=== PATIENT | female | born 1960 | race Caucasian/White ===

== ENCOUNTER → 2022-10-31 12:28 | Outpatient (CLI) | payer OTHER, SELFPAY ==
--- NOTE | ~2022-10-31 | DEXA_ITS ---
Bone Density Report Name: STUART COLIN Age: 62 Sex: Female Ethnicity: White Date of : 1960 Indication: osteopenia; postmenopausal; height loss; prior fracture; Referring Provider: BENOIT MERAZ Study: Bone densitometry was performed. Exam Date: October 31, 2022 Accession number: [id number] Bone Density: Region BMD T-score Z-score Classification AP Spine (L1-L4) 0.756 -2.6 -1.0 Osteoporosis Femoral Neck (Left) 0.672 -1.6 -0.2 Osteopenia Total Hip (Left) 0.847 -0.8 0.4 Normal Femoral Neck (Right) 0.670 -1.6 -0.2 Osteopenia Total Hip (Right) 0.910 -0.3 0.9 Normal Total Hip Mean 0.879 -0.6 0.7 Normal World Health Organization criteria for BMD impression classify patients as: Normal (T-score at or above -1.0), Osteopenia (T-score between -1.0 and -2.5), or Osteoporosis (T-score at or below -2.5). 10-year Fracture Risk: FRAX not reported because: Some T-score for Spine Total or Hip Total or Femoral Neck at or below -2.5 Previous Exams: Region Exam Age BMD T-score BMD Change BMD Change Date g/cm2 vs Baseline vs Previous AP Spine(L1-L4) 10/31/2022 62 0.756 -2.6 -0.121* -0.121* 12/18/2018 58 0.877 -1.5 Total Hip(Left) 10/31/2022 62 0.847 -0.8 -0.046* -0.046* 12/18/2018 58 0.893 -0.4 Total Hip(Right) 10/31/2022 62 0.910 -0.3 -0.003 -0.003 12/18/2018 58 0.913 -0.2 *Denotes significance at 95% confidence level, LSC for AP Spine = 0.022 g/cm2, LSC for Total Hip = 0.027 g/cm2 Clinical Information Provided by Patient: Has had a low trauma fracture Has used the following medications: Vitamin D, calcium occasionally Patient maximum height was 67 Menopause Age: 49 No regular weight bearing exercise Does not regularly consume dairy products Drinks caffeinated beverages Onset of menses at age 12 Number of children 2 Impression: The patient has established osteoporosis, based on the Total Spine T-score and the existence of a prior fracture. The patient has risk factors, including: previous fracture. The BMD for the AP Spine(L1-L4) decreased, changing by -0.121 since the last DXA exam. The BMD for the Total Hip(Left) decreased, changing by -0.046 since the last DXA exam. Discussion: HIGH RISK OF FRACTURE. BONE DENSITY IS UNDESIRABLY LOW AT ONE OR MORE SKELETAL SITES, CONSISTENT WITH POSTMENOPAUSAL OSTEOPOROSIS. This patient's lowest T-score, in a patient who has previously fractured, meet
== END ==
PROVIDERS: Visit Provider Obstetrics & Gynecology Gynecology
DX: Z78.0 Asymptomatic menopausal state (principal); M81.0 Age-related osteoporosis without current pathological fracture; M85.852 Other specified disorders of bone density and structure, left thigh; M85.851 Other specified disorders of bone density and structure, right thigh
CPT/HCPCS: 77080

== ENCOUNTER 2025-01-02 08:27 | Outpatient (CLI) | payer OTHER, SELFPAY ==
--- OUTSIDE RECORDS SUMMARY | 2004-01-10 19:00 | XMS_ITS | Continuity of Care Document ---
Author Organization [facility] Address [address] [place] [address] Phone Care Team Providers Care Family Worker Name Role Phone Elizalde OD, Augusto Unavailable Unavailable Advance Directives Directive Yes / No Effective Date File Name No Information Encounters Encounter Description Practice Location Reason(s) For Visit Diagnoses Date Provider Providers Copied on Encounter [facility], [address], [place], [place], [id number], [place] tel:[phone] [facility] No Information Sep-1 6-200 4 Elizalde OD Augusto. [address], [place], [address], [place]. tel:[phone] Family History Family Member Type Diagnosis Age At Onset No Information Payers Payer name Insurance type Covered alliance party ID Authoriza tion(s) No Information Social History Type Description Quantity Date Captured Comments Sex Female Smoking Status No Information Chief Complaint And Reason For Visit No Information Reason For Referral Reason For Referral No Information History Of Present Illness Encounter Date Complaint History Of Prese nt Illness No Information Functional Status Date Functional Assessmen t No Information Instructions Date Instruction Additional Infor mation No Information Assessments Type Assessment Date No Information Patient Care Teams Name Effective Dates (start - stop) Status Members No Information
--- NOTE | ~2025-01-02 | DEXA_ITS ---
Bone Density Report Name: STUART COLIN Age: 64 Sex: Female Ethnicity: White Date of : 1960 Indication: postmenopausal; screening for osteoporosis; height loss; prior fracture; Referring Provider: BENOIT MERAZ Study: Bone densitometry was performed. Exam Date: January 02, 2025 Accession number: [id number] Bone Density: Region BMD T-score Z-score Classification AP Spine(L1-L4) 0.784 -2.4 -0.6 Osteopenia Femoral Neck (Left) 0.712 -1.2 0.3 Osteopenia Total Hip (Left) 0.982 0.3 1.6 Normal Femoral Neck (Right) 0.719 -1.2 0.4 Osteopenia Total Hip (Right) 0.972 0.2 1.5 Normal Total Hip Mean 0.977 0.3 1.6 Normal World Health Organization criteria for BMD impression classify patients as: Normal (T-score at or above -1.0), Osteopenia (T-score between -1.0 and -2.5), or Osteoporosis (T-score at or below -2.5). 10-year Fracture Risk(1): Major Osteoporotic Fracture 13% Hip Fracture 1.1% Reported Risk Factors: [place] (), Neck BMD=0.712, BMI=32.9, previous fracture (1) FRAX(R) Version 3.08. Fracture probability calculated for an untreated patient. Fracture probability may be lower if the patient has received treatment. Clinical Information Provided by Patient: Has had a low trauma fracture Has used the following medications: Vitamin D Patient maximum height was 67 Menopause Age: 49 No regular weight bearing exercise Does not regularly consume dairy products Drinks caffeinated beverages Onset of menses at age 12 Number of children 2 Impression: The patient has low bone mass, based on the Total Spine T-score. The patient has an estimated ten-year risk of hip fracture of 1.1% and an estimated ten-year risk of major fracture of 13%, based on the WHO FRAX algorithm. The patient has risk factors, including: previous fracture. Discussion: BONE DENSITY IS LOW AT ONE OR MORE SKELETAL SITES. This patient's lowest T-score is low at one or more skeletal sites. It meets the World Health Organization's (WHO) criteria for ?low bone mass? (T-score between -1.0 and -2.5). The patient's 10-year risk of fracture as calculated by FRAX is less than the threshold where pharmacological therapy is recommended by the National Osteoporosis Foundation (NOF). However, all treatment decisions require clinical judgment and consideration of individual patient factors, including patient preferences, comorbidities, previous drug use, risk factors not captured in the FRAX model (e.g., frailty, falls, vitamin D deficiency, increased bone turnover, interval significant decline in bone density) and possible under or overestimation of fracture risk by FRAX. The patient should follow a healthful lifestyle (good nutrition with adequate calcium and vitamin D, and appropriate weight-bearing exercise). Follow-Up: Consider repeating this study in 2 to 3 years to reassess this patient's status, or sooner if there is some new clinical indication. Reported by: JUAN on 01/02/2025 11:05:00 AM. Reviewed, dictated and finalized at location A.
--- OUTSIDE RECORDS SUMMARY | 2025-01-02 08:42 | XMS_ITS | Encounter Summary ---
Author Organization [facility] Address [address] [place] [address] Care Team Providers Care Banking Paralegal Name Role Phone Huber Haile MD Primary Care Provider [phone] Encounter Details Date Type Department Care Team (Latest Contact Info) Description 12/07/2003 Outpatient Historical [facility] JESSICA Irwin, Parish Rojas MD [address] [address] SCREENING MAMM-MAILG NEOPL-OTHER (Primary Dx) Social History Tobacco Use Types Packs/Day Years Used Date Smoking Tobacco: Never Assessed Comments Unknown Sex and Gender Information Value Date Recorded Sex Assigned at Not on file Legal Sex Female 4:39 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
--- OUTSIDE RECORDS SUMMARY | 2025-01-02 08:42 | XMS_ITS | Clinical Summary ---
Author Organization [facility] [employer] Address [address] [address] Care Team Providers Care Mold Capper Name Role Phone Huber Haile MD Primary Care Provider [phone] Source Comments [facility],non-owned Affiliates and Associated Physician Practices is amultiple site organization consisting of ambulatory clinics and hospital sitesin [place], [place], [place] and [place]. This disclosure is being madepursuant to the Care Everywhere program and may not contain all information available regarding this patient. Last updated 18.[facility] [employer] Allergies Active Allergy Reactions Criticality Noted Date Comments Atorvastatin Other Low Reaction: arms felt weak, Pravastatin Other High Reaction: muscle cramps, Medications * Be aware that medications may not be up to date on this document. Alwaysverify current medications with the patient. sucralfate (CARAFATE) 1 GM tablet Take 1 g by mouth 4 times daily - before meals & nightly. Active losartan (COZAAR) 50 MG tablet Take 50 mg by mouth once daily. Active pantoprazole (PROTONIX) 40 MG packet Take 40 mg by mouth once daily. Active imipramine (TOFRANIL) 25 MG tablet Take 25 mg by mouth at bedtime. Active cyclobenzaprine (FLEXERIL) 5 MG tablet Take 1 tablet by oral route 1-2 hours before bed prn muscle spasm 03/16/2018 Active fenofibrate (LOFIBRA) 160 MG tablet Take 160 mg by mouth once daily 2 08/28/2018 Active levothyroxine (SYNTHROID) 112 MCG tablet TAKE 1 TABLET BY MOUTH DAILY 05/17/2018 Active montelukast (SINGULAIR) 10 MG tablet TAKE 1 TABLET BY MOUTH NIGHTLY 07/14/2018 Active aspirin (ASPIRIN) 81 MG tablet 81 mg 09/26/2015 Active SUMAtriptan (IMITREX) 50 MG tablet 50 mg 10/25/2014 Active metoclopramide (REGLAN) 10 MG tablet Take 1 tablet by mouth 3 times daily before meals 90 tablet 10/11/2018 Active Family History Medical History Relation Name Comments Cancer - Esophageal Father smoking history Cancer - Breast Other aunt Relation Name Status Comments Father Other aunt Alive Social History Tobacco Use Types Packs/Day Years Used Date Smoking Tobacco: Never Smokeless Tobacco: Never Alcohol Use Standard Drinks/Week Comments Yes 2 (1 standard drink = 0.6 oz pur e alcohol) occasionally Comments Unknown Sex and Gender Information Value Date Recorded Sex Assigned at Not on file Legal Sex Female 6:16 AM EXTENSION CLERK Gender Identity Not on file Sexual Orientation Not on file Last Filed Vital Signs Vital Sign Reading Time Taken Comments Blood Pressure 120/70 10/11/2018 2:59 PM CDT Pulse 90 10/11/2018 2:59 PM CDT Temperature 36.8 C (98.2 F) 05/16/2016 3:23 PM EXTENSION CLERK Respiratory Rate 18 05/16/2016 3:23 PM EXTENSION CLERK Oxygen Saturation 97% 10/11/2018 2:59 PM CDT Inhaled Oxygen Concentration - - Weight 87.5 kg (192 lb 12.8 oz) 10/11/2018 2:59 PM CDT Height 170.2 cm (5' 7) 10/11/2018 2:59 PM CDT Body Mass Index 30.2 10/11/2018 2:59 PM CDT Plan of Treatment Health Maintenance Due Date Last Done Comments BONE DENSITY TESTING 1960 COLOGUARD (AGES 45-75) - COLON CA SCREENING 1960 COLON MONITORING 1960 COLONOSCOPY - COLON CA SCREENING 1960 CT COLONOGRAPHY - COLON CA SCREENING 1960 Colorectal Cancer Screening 1960 FIT - COLON CA SCREENING 1960 FLEX SIG - COLON CA SCREENING 1960 LIPID TESTING 1960 MAMMOGRAM 1960 HIV SCREENING 1974 HEPATITIS C SCREENING 06/09/1977 DTAP/TDAP/TD VACCINES (1 - Tdap) 1978 PNEUMOCOCCAL VACCINE 50+ (1 of 1 - PCV) 2009 ZOSTER VACCINE (1 of 2) 2009 SCREENING FOR DIABETES 09/27/2018 DEPRESSION SCREENING 04/27/2024 COVID-19 VACCINE (1 - season) 2024 INFLUENZA VACCINE (#1) 2024 7, 02/06/2016, 02/07/2014, Additional history exists Respiratory Syncytial Virus (RSV) Vaccine Pt: or over 60 yrs (1 - 1-dose 75+ series) 2034 HEPATITIS B VACCINE Aged Out No longe r eligible based on patient's age to complete this topic HIB VACCINE Aged Out No longer eligi ble based on patient's age to complete this topic HPV VACCINE Aged Out No longer eligi ble based on patient's age to complete this topic MENINGOCOCCAL (Group B) VACCINE SHARED DECISION-MAKING Aged Out No longer eligible based on patient's age to complete this topic MENINGOCOCCAL GROUPS A/C/Y/W VACCINE Aged Out No longer eligible based on patient's age to complete this topic Insurance ANTHEM [employer]TH Care Teams Mold Capper Relationship Specialty Start Date End Date Huber Haile MD [address] [address] PCP - General 11/19/11
--- OUTSIDE RECORDS SUMMARY | 2025-01-02 08:42 | XMS_ITS | Encounter Summary ---
Author Organization [facility] Address [address] [place] [address] Care Team Providers Care Stage Set Up Worker Name Role Phone Kim Quiroga MD Primary Care Provider [phone] Conor Slaughter MD Unavailable Encounter Details Date Type Department Care Team (Late st Contact Info) Description 01/31/2020 Telephone [facility] - Imaging [address] [place] [address] Transcribed Order, Provider Social History Tobacco Use Types Packs/Day Years Used Date Smoking Tobacco: Never Smokeless Tobacco: Never Alcohol Use Standard Drinks/Week Comments Yes 8 (1 standard drink = 0.6 oz pure alcohol) average twice weekly, 4 drinks per session PHQ-2 Answer Date Recorded PHQ-2 Total Score (If total score is 3 or more points, staff should administer the PHQ-9) 0 01/18/2020 Comments No Sex and Gender Information Value Date Recorded Sex Assigned at Not on file Legal Sex Female 12:08 PM PHLEBOTOMY DIRECTOR Gender Identity Female 08/08/2021 2:21 PM CDT Sexual Orientation Straight 08/08/2021 2: 21 PM CDT documented as of this encounter Plan of Treatment Not on file documented as of this encounter Visit Diagnoses Not on filedocumented in this encounter Care Teams Stage Set Up Worker Relationship Specialty Start Date End Date Kim Quiroga MD [address] [facility] [address] [place] [address] PCP - General Family Medicine 01/18/20 Conor Slaughter MD [address] [place] [address] Medical Oncologist/Public Health Representative Hematology and Oncology 09/12/24 documented as of this encounter
--- OUTSIDE RECORDS SUMMARY | 2025-01-02 08:42 | XMS_ITS | Encounter Summary ---
Author Organization [facility] Address [address] [place] [address] Care Team Providers Care Sort Operations Supervisor Name Role Phone Huber Haile MD Primary Care Provider [phone] Encounter Details Date Type Department Care Team (Late st Contact Info) Description 04/10/1999 Outpatient Historical [facility] CHAIR SPRINGER - Medical [facility] [address] [facility] [address] [phone] Geo Finley Social History Tobacco Use Types Packs/Day Years Used Date Smoking Tobacco: Never Assessed Comments Unknown Sex and Gender Information Value Date Recorded Sex Assigned at Not on file Legal Sex Female 4:39 AM 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
--- OUTSIDE RECORDS SUMMARY | 2025-01-02 08:42 | XMS_ITS | Encounter Summary ---
Author Organization [facility] Address [address] [place] [address] Care Team Providers Care Central Service Tech Name Role Phone Huber Haile MD Primary Care Provider [phone] Encounter Details Date Type Department Care Team (Late st Contact Info) Description 07/02/2000 Outpatient Historical [facility] TOOL AND DIE INSPECTOR - Medical [place] [address] [place], [place] [address] [place] [address] Parish Irwin MD [address] [address] Social History Tobacco Use Types Packs/Day Years Used Date Smoking Tobacco: Never Assessed Comments Unknown Sex and Gender Information Value Date Recorded Sex Assigned at Not on file Legal Sex Female 4:39 AM BRASS PICKLER Gender Identity Not on file Sexual Orientation Not on file documented as of this encounter Plan of Treatment Not on file documented as of this encounter Visit Diagnoses Not on filedocumented in this encounter Care Teams Central Service Tech Relationship Specialty Start Date End Date Huber Haile MD [address] [phone] PCP - General 12/07/02 documented as of this encounter
--- OUTSIDE RECORDS SUMMARY | 2025-01-02 08:42 | XMS_ITS | Encounter Summary ---
Author Organization [facility] Address [address] [place] [address] Care Team Providers Care Lead Supply Worker Name Role Phone Huber Haile MD Primary Care Provider [phone] Encounter Details Date Type Department Care Team (Latest Contact Info) Description 05/14/1999 Outpatient Historical [facility] Geo Cardenas Other screening mammogram (Primary Dx) Social History Tobacco Use Types Packs/Day Years Used Date Smoking Tobacco: Never Assessed Comments Unknown Sex and Gender Information Value Date Recorded Sex Assigned at Not on file Legal Sex Female 4:39 AM DEHYDRATION UNIT OPERATOR Gender Identity Not on file Sexual Orientation Not on file documented as of this encounter Plan of Treatment Not on file documented as of this encounter Visit Diagnoses Diagnosis Other screening mammogram- Primary documented in this encounter Care Teams Lead Supply Worker Relationship Specialty Start Date End Date Huber Haile MD [address] [place] [address] PCP - General 12/07/02 documented as of this encounter
--- OUTSIDE RECORDS SUMMARY | 2025-01-02 08:42 | XMS_ITS | Encounter Summary ---
Author Organization [facility] Address [address] [place] [address] Care Team Providers Care Potato Seed Cutter Name Role Phone Huber Haile MD Primary Care Provider [phone] Encounter Details Date Type Department Care Team (Latest Contact Info) Description 02/20/2005 Outpatient Historical [facility] JESSICA Irwin, Parish Rojas MD [address] [address] SCREENING MAMM-MAILG NEOPL NEC (Primary Dx) Social History Tobacco Use Types Packs/Day Years Used Date Smoking Tobacco: Never Assessed Comments Unknown Sex and Gender Information Value Date Recorded Sex Assigned at Not on file Legal Sex Female 4:39 AM DRUM HANDLER Gender Identity Not on file Sexual Orientation Not on file documented as of this encounter Plan of Treatment Not on file documented as of this encounter Visit Diagnoses Diagnosis Other screening mammogram- Primary documented in this encounter Care Teams Potato Seed Cutter Relationship Specialty Start Date End Date Huber Haile MD [address] [phone] PCP - General 12/07/02 documented as of this encounter
--- OUTSIDE RECORDS SUMMARY | 2025-01-02 08:42 | XMS_ITS | Encounter Summary ---
Author Organization [facility] Address [address] [place] [address] Care Team Providers Care Infection Preventionist Name Role Phone Huber Haile MD Primary Care Provider [phone] Encounter Details Date Type Department Care Team (Latest Contact Info) Description 09/02/2001 Outpatient Historical [facility] JESSICA Irwin, Parish Rojas MD [address] [address] SCREENING MAMM-MAILG NEOPL-OTHER (Primary Dx) Social History Tobacco Use Types Packs/Day Years Used Date Smoking Tobacco: Never Assessed Comments Unknown Sex and Gender Information Value Date Recorded Sex Assigned at Not on file Legal Sex Female 4:39 AM AREA FIELD MANAGER Gender Identity Not on file Sexual Orientation Not on file documented as of this encounter Plan of Treatment Not on file documented as of this encounter Visit Diagnoses Diagnosis Other screening mammogram- Primary documented in this encounter Care Teams Infection Preventionist Relationship Specialty Start Date End Date Huber Haile MD [address] [phone] PCP - General 12/07/02 documented as of this encounter
--- OUTSIDE RECORDS SUMMARY | 2025-01-02 08:42 | XMS_ITS | Encounter Summary ---
Author Organization [facility] Address [address] [place] [address] Care Team Providers Care Helicopter Pilot Name Role Phone Huber Fatima MD Primary Care Provider [phone] Encounter Details Date Type Department Care Team (Latest Contact Info) Description 07/15/2007 Outpatient Historical [facility] JESSICA Tejeda, Reginaldo Rojas MD [address] [place] [address] Other Screening Mammogram Social History Tobacco Use Types Packs/Day Years Used Date Smoking Tobacco: Never Assessed Comments Unknown Sex and Gender Information Value Date Recorded Sex Assigned at Not on file Legal Sex Female 4:39 AM VISUALIZATION DEVELOPER Gender Identity Not on file Sexual Orientation Not on file documented as of this encounter Plan of Treatment Not on file documented as of this encounter Procedures Procedure Name Priority Date/Time Associated Diagnosis Comments MAMMO SCREEN BILAT W OR WO CAD Routine 07/15/2007 7:43 AM CDT documented in this encounter Results * MAMMO DIGITAL SCREEN BILAT (07/15/2007 7:43 AM CDT) Anatomical Region Laterality Modality Breast Bilateral Other 07/15/2007 7:43 AM CDT Narrative 07/15/2007 3:38 PM CDT [address] [address] Admit Date: 07/15/2007 STUART BARCENAS Sex: F Admit Prov: REGINALDO TEJEDA Date: 1960 Primary Care Prov: Huber FATIMA CMRN: [id number] Room: CHRIS N: [id number] IMAGING SERVICES Ordering Prov: REGINALDO TEJEDA Accession Number: [id number] Interpretation BILATERAL FULL FIELD DIGITAL SCREENING MAMMOGRAM WITH CAD. Date: 07/15/2007 History: Routine Screening. Technique: Full field digital craniocaudal and mediolateral oblique projections of both breasts were obtained. Computer aided diagnosis was performed. Comparison: 02/2006, 01/2005, 11/2003 Breast Parenchymal Composition: Scattered fibroglandular densities. Findings: No suspicious mass, suspicious microcalcifications, or architectural distortion in either breast is identified. Since the prior study, there has been no significant interval change. The computer aided diagnosis detects no significant abnormality. Overall Assessment: BI-RADS category 1: Negative. Recommendation: Annual mammography is recommended. Assessment BIRADS: 1-Negative Recommendation: Normal interval follow-up Dictated by: DILCIA ALY Electronically signed by: DILCIA ALY 07/15/2007 15:38 Transcribed: 07/15/2007 14:43 DKT Procedure Note Provider, Historical - 07/15/[address] [address] Admit Date: 07/15/2007 STUART BARCENAS Sex: F Admit Prov: REGINALDO TEJEDA Date: 1960 Primary Care Prov: Huber FATIMA CMRN: [id number] Room: CHRIS N: [id number] IMAGING SERVICES Ordering Prov: REGINALDO TEJEDA Interpretation BILATERAL FULL FIELD DIGITAL SCREENING MAMMOGRAM WITH CAD. Date: 07/15/2007 History: Routine Screening. Technique: Full field digital craniocaudal and mediolateral oblique projections of both breasts were obtained. Computer aided diagnosiswas performed. Comparison: 02/2006, 01/2005, 11/2003 Breast Parenchymal Composition: Scattered fibroglandular densities. Findings: No suspicious mass, suspicious microcalcifications, or architectural distortion in either breast is identified. Since theprior study, there has been no significant interval change. The computeraided diagnosis detects no significant abnormality. Overall Assessment: BI-RADS category 1: Negative. Recommendation: Annual mammography is recommended. Assessment BIRADS: 1-Negative Recommendation: Normal interval follow-up Dictated by: DILCIA ALY Electronically signed by: DILCIA ALY 07/15/2007 15:38 Transcribed: 07/15/2007 14:43 DKT Reginaldo Tejeda MD MAMMO ORDERABLES Final Result documented in this encounter Visit Diagnoses Diagnosis Other screening mammogram documented in this encounter Care Teams Helicopter Pilot Relationship Specialty Start Date End Date Huber Fatima MD [address] [address] PCP - General 12/07/02 documented as of this encounter
--- OUTSIDE RECORDS SUMMARY | 2025-01-02 08:42 | XMS_ITS | Encounter Summary ---
Author Organization [facility] Address [address] [place] [address] Care Team Providers Care Resident Program Specialist Name Role Phone Huber Haile MD Primary Care Provider [phone] Encounter Details Date Type Department Care Team (Late st Contact Info) Description 03/05/2006 Outpatient Historical [facility] JEWELRY ENGRAVER - Medical [place] [address] [place], [place] [address] [place] [address] Parish Irwin MD [address] [address] Social History Tobacco Use Types Packs/Day Years Used Date Smoking Tobacco: Never Assessed Comments Unknown Sex and Gender Information Value Date Recorded Sex Assigned at Not on file Legal Sex Female 4:39 AM BUSINESS INTELLIGENCE ADMINISTRATOR Gender Identity Not on file Sexual Orientation Not on file documented as of this encounter Plan of Treatment Not on file documented as of this encounter Visit Diagnoses Not on filedocumented in this encounter Care Teams Resident Program Specialist Relationship Specialty Start Date End Date Huber Haile MD [address] [phone] PCP - General 12/07/02 documented as of this encounter
--- OUTSIDE RECORDS SUMMARY | 2025-01-02 08:42 | XMS_ITS | Encounter Summary ---
Author Organization [facility] Address [address] [place] [address] Care Team Providers Care Percher Name Role Phone Huber Haile MD Primary Care Provider [phone] Encounter Details Date Type Department Care Team (Late st Contact Info) Description 12/22/2002 Outpatient Historical [facility] TRACK GREASER - [address] [place] [address] Parish Irwin MD [address] [place] [address] Social History Tobacco Use Types Packs/Day Years Used Date Smoking Tobacco: Never Assessed Comments Unknown Sex and Gender Information Value Date Recorded Sex Assigned at Not on file Legal Sex Female 4:39 AM MENTAL RETARDATION AIDE Gender Identity Not on file Sexual Orientation Not on file documented as of this encounter Plan of Treatment Not on file documented as of this encounter Visit Diagnoses Not on filedocumented in this encounter Care Teams Percher Relationship Specialty Start Date End Date Huber Haile MD [address] [facility] [address], [place] [address] PCP - General 12/07/02 documented as of this encounter
--- OUTSIDE RECORDS SUMMARY | 2025-01-02 08:42 | XMS_ITS | Encounter Summary ---
Author Organization [facility] Address [address] [facility] Attn: Epic Prelude ADT [facility] [address] Care Team Providers Care Leasing Coordinator Name Role Phone Huber Haile MD Primary Care Provider [phone] Encounter Details Date Type Department Care Team (Late st Contact Info) Description 09/17/1994 Outpatient Historical [facility] Social History Tobacco Use Types Packs/Day Years Used Date Smoking Tobacco: Never Assessed Comments Unknown Sex and Gender Information Value Date Recorded Sex Assigned at Not on file Legal Sex Female 4:39 AM GUARD LIEUTENANT Gender Identity Not on file Sexual Orientation Not on file documented as of this encounter Plan of Treatment Not on file documented as of this encounter Visit Diagnoses Not on filedocumented in this encounter Care Teams Leasing Coordinator Relationship Specialty Start Date End Date Huber Haile MD [address] [facility] [address] [place] [phone] PCP - General 12/07/02 documented as of this encounter
--- OUTSIDE RECORDS SUMMARY | 2025-01-02 08:42 | XMS_ITS | Encounter Summary ---
Author Organization [facility] Address [address] [place] [address] Care Team Providers Care Revenue Cycle Manager Name Role Phone Huber Haile MD Primary Care Provider [phone] Encounter Details Date Type Department Care Team (Late st Contact Info) Description 02/20/2005 Outpatient Historical [facility] EMBEDDED ENGINEER - Medical [place] [address] [place], [place] [address] [address] Parish Irwin MD [address] [address] Social History Tobacco Use Types Packs/Day Years Used Date Smoking Tobacco: Never Assessed Comments Unknown Sex and Gender Information Value Date Recorded Sex Assigned at Not on file 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
--- OUTSIDE RECORDS SUMMARY | 2025-01-02 08:42 | XMS_ITS | Encounter Summary ---
Author Organization [facility] Address 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
--- OUTSIDE RECORDS SUMMARY | 2025-01-02 08:42 | XMS_ITS | Encounter Summary ---
Author Organization [facility] Address [address] [place] [address] Care Team Providers Care Merchandise Appraiser Name Role Phone Huber Haile MD Primary Care Provider [phone] Encounter Details Date Type Department Care Team (Latest Contact Info) Description 12/07/2002 Outpatient Historical HIS [facility] JESSICA Irwin, Parish Rojas MD [address] [address] SCREENING MAMM-MAILG NEOPL-OTHER (Primary Dx) Social History Tobacco Use Types Packs/Day Years Used Date Smoking Tobacco: Never Assessed Comments Unknown Sex and Gender Information Value Date Recorded Sex Assigned at Not on file 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
--- OUTSIDE RECORDS SUMMARY | 2025-01-02 08:42 | XMS_ITS | Encounter Summary ---
Author Organization [facility] Address [address] [facility] Attn: Epic Prelude ADT [facility] [place] [address] Care Team Providers Care Parts Salesperson Name Role Phone Huber Haile MD Primary Care Provider [phone] Encounter Details Date Type Department Care Team (Late st Contact Info) Description 07/16/1995 Outpatient Historical Geo Finley Social History Tobacco Use Types Packs/Day Years Used Date Smoking Tobacco: Never Assessed Comments Unknown Sex and Gender Information Value Date Recorded Sex Assigned at Not on file 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
--- OUTSIDE RECORDS SUMMARY | 2025-01-02 08:42 | XMS_ITS | Encounter Summary ---
Author Organization [facility] Address [address] [place] [address] Care Team Providers Care Asphalt Distributor Operator Name Role Phone Huber Haile MD Primary Care Provider [phone] Encounter Details Date Type Department Care Team (Latest Contact Info) Description 08/13/2000 Outpatient Historical HIS [facility] JESSICA Irwin, Parish Rojas MD [address] [address] Other screening mammogram (Primary Dx) Social History Tobacco Use Types Packs/Day Years Used Date Smoking Tobacco: Never Assessed Comments Unknown Sex and Gender Information Value Date Recorded Sex Assigned at Not on file 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
--- OUTSIDE RECORDS SUMMARY | 2025-01-02 08:42 | XMS_ITS | Encounter Summary ---
Author Organization [facility] Address [address] [place] [address] Care Team Providers Care Carbide Powder Processor Name Role Phone Huber Fatima MD Primary Care Provider [phone] Encounter Details Date Type Department Care Team (Latest Contact Info) Description 10/31/2008 Outpatient Historical HIS [facility] JESSICA Tejeda, Reginaldo Rojas MD [address] [place] [address] Abnormal Mammogram, Unspecified Social History Tobacco Use Types Packs/Day Years Used Date Smoking Tobacco: Never Alcohol Use Standard Drinks/Week Comments Yes 0 (1 standard drink = 0.6 oz pur e alcohol) Comments No Sex and Gender Information Value Date Recorded Sex Assigned at Not on file Legal Sex Female 4:39 AM GERIATRIC PERSONAL CARE AIDE Gender Identity Not on file Sexual Orientation Not on file documented as of this encounter Plan of Treatment Not on file documented as of this encounter Procedures Procedure Name Priority Date/Time Associated Diagnosis Comments US BREAST UNI LEFT COMPLETE Routine 10/31/2008 2:05 PM CDT documented in this encounter Results * US BREAST UNILATERAL LEFT (10/31/2008 2:05 PM CDT) Anatomical Region Laterality Modality Breast Left Other 10/31/2008 2:05 PM CDT Narrative 11/01/2008 6:37 AM CDT [place] [id number] Admit Date: 10/31/2008 STUART BARCENAS Sex: F Admit Prov: REGINALDO TEJEDA Date: 1960 Primary Care Prov: Huber FATIMA CMRN: [id number] [id number] IM[facility] Ordering Prov: REGINALDO TEJEDA Accession Number: [id number] Interpretation SONOGRAMS OF THE LEFT BREAST 10/31/2008 Reason for this examination: Abnormal screening mammogram. The screening mammograms from 10/24/2008 show a new mass in the upper-outer quadrant of the left breast. Findings: Sonograms of the left breast were obtained with real-time technique. There is a 1.8 cm simple cyst in the upper-outer quadrant. This corresponds to the new lesion on the mammograms. A few smaller cysts are present. There are no solid masses. IMPRESSION: There is a simple cyst in the upper-outer quadrant of the left breast. This accounts for a lesion on recent screening mammograms. There is no evidence of a solid mass. Recommendations: The patient should resume screening mammography in September 2009. Overall assessment: BIRADS category 2 - Benign findings. Dictated by: STANTON JAMISON Electronically signed by: STANTON JAMISON 11/01/2008 06:36 Transcribed: 10/31/2008 22:52 VTJ Procedure Note Stanton Jamison MD - 11/01/[address] [address] Admit Date: 10/31/2008 STUART BARCENAS Sex: F Admit Prov: REGINALDO TEJEDA Date: 1960 Primary Care Prov: Huber FATIMA CMRN: [id number] Room: [place] N: [id number] IMAGING SERVICES Ordering Prov: REGINALDO TEJEDA Interpretation SONOGRAMS OF THE LEFT BREAST 10/31/2008 Reason for this examination: Abnormal screening mammogram. The screening mammograms from 10/24/2008 show a new mass in theupper-outer quadrant of the left breast. Findings: Sonograms of the left breast were obtained withreal-time technique. There is a 1.8 cm simple cyst in the upper-outer quadrant.This corresponds to the new lesion on the mammograms. A few smaller cystsare present. There are no solid masses. IMPRESSION: There is a simple cyst in the upper-outer quadrant of the leftbreast. This accounts for a lesion on recent screening mammograms. There is no evidence of a solid mass. Recommendations: The patient should resume screening mammography inJune 2009. Overall assessment: BIRADS category 2 - Benign findings. Dictated by: STANTON JAMISON Electronically signed by: STANTON JAMISON 11/01/2008 06:36 Transcribed: 10/31/2008 22:52 SDJ us Reginaldo Tejeda MD ORDERABLES Final Result documented in this encounter Visit Diagnoses Diagnosis Abnormal mammogram, unspecified documented in this encounter Care Teams Carbide Powder Processor Relationship Specialty Start Date End Date Huber Fatima MD [facility] [phone] PCP - General 12/07/02 documented as of this encounter
--- OUTSIDE RECORDS SUMMARY | 2025-01-02 08:42 | XMS_ITS | Encounter Summary ---
Author Organization [facility] Address 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 Sex Female 4:39 AM FUR DYER Gender Identity Not on file Sexual Orientation Not on file documented as of this encounter Plan of Treatment Not on file documented as of this encounter Procedures Procedure Name Priority Date/Time Associated Diagnosis Comments MAMMO SCREEN BILAT W OR WO CAD Routine 10/24/2008 10:58 AM CDT documented in this encounter Results * MAMMO DIGITAL SCREEN BILAT (10/24/2008 10:58 AM CDT) Anatomical Region Laterality Modality Breast Bilateral Other 10/24/2008 10:5 8 AM CDT Narrative 10/24/2008 3:15 PM CDT [address] [address] Admit Date: 10/24/2008 STUART BARCENAS Sex: F Admit Prov: REGINALDO TEJEDA Date: 1960 Primary Care Prov: Huber FATIMA CMRN: [id number] Room: [facility] N: [id number] IMAGING SERVICES Ordering Prov: REGINALDO TEJEDA Accession Number: [id number] Interpretation BILATERAL SCREENING DIGITAL MAMMOGRAMS WITH COMPUTER ASSISTED DIAGNOSIS 10/24/2008 Reason for this examination: Annual screening study. Findings: The parenchyma is moderately dense bilaterally. There are no significant abnormalities on the right. There is a 2 cm partially obscured and partially circumscribed mass in the upper outer quadrant of left breast. This has changed since 07/15/2007. There is no spiculation or malignant calcification. The differential diagnosis includes cyst and neoplasm. The images were reviewed using the CAD system. Conclusion: New mass in the left breast. This may be a cyst or neoplasm. Recommendations: A left breast sonogram and possible diagnostic mammograms are recommended for more complete evaluation. Overall assessment: BIRADS category 0 - Needs additional imaging evaluation. Assessment BIRADS: 0-Incomplete: Need additional imaging evaluation Recommendation: Additional projections Ultrasound Dictated by: STANTON JAMISON Electronically signed by: STANTON JAMISON 10/24/2008 15:15 Transcribed: 10/24/2008 14:22 WIJ Procedure Note Stanton Jamison MD - 10/24/[address] [address] Admit Date: 10/24/2008 STUART BARCENAS Sex: F Admit Prov: REGINALDO TEJEDA Date: 1960 Primary Care Prov: Huber FATIMA CMRN: [id number] Room: [facility]RIS N: [id number] IMAGING SERVICES Ordering Prov: REGINALDO TEJEDA Interpretation BILATERAL SCREENING DIGITAL MAMMOGRAMS WITH COMPUTER ASSISTEDDIAGNOSIS 10/24/2008 Reason for this examination: Annual screening study. Findings: The parenchyma is moderately dense bilaterally. There areno significant abnormalities on the right. There is a 2 cm partially obscured and partially circumscribed massin the upper outer quadrant of left breast. This has changed since07/15/2007. There is no spiculation or malignant calcification. Thedifferential diagnosis includes cyst and neoplasm. The images were reviewed usingthe CAD system. Conclusion: New mass in the left breast. This may be a cyst orneoplasm. Recommendations: A left breast sonogram and possible diagnosticmammograms are recommended for more complete evaluation. Overall assessment: BIRADS category 0 - Needs additional imaging evaluation. Assessment BIRADS: 0-Incomplete: Need additional imagingevaluation Recommendation: Additional projections Ultrasound Dictated by: STANTON JAMISON Electronically signed by: STANTON JAMISON 10/24/2008 15:15 Transcribed: 10/24/2008 14:22 SDJ us Reginaldo Tejeda MD MAMMO ORDERABLES Final Result documented in this encounter Visit Diagnoses Diagnosis Other screening mammogram documented in this encounter Care Teams Backend Developer Relationship Specialty Start Date End Date Huber Fatima MD [address] [place] [phone] PCP - General 12/07/02 documented as of this encounter
--- OUTSIDE RECORDS SUMMARY | 2025-01-02 08:42 | XMS_ITS | Encounter Summary ---
Author Organization [facility] Address [address] [place] [address] Care Team Providers Care Hvac Refrigeration Technician Name Role Phone Huber Haile MD Primary Care Provider [phone] Encounter Details Date Type Department Care Team (Late st Contact Info) Description 01/11/2004 Outpatient Historical [facility] WELT STITCHER - Medical [place] [address] [place], [place] [address] [place] [address] Parish Irwin MD [address] [address] Social History Tobacco Use Types Packs/Day Years Used Date Smoking Tobacco: Never Assessed Comments Unknown Sex and Gender Information Value Date Recorded Sex Assigned at Not on file 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
--- OUTSIDE RECORDS SUMMARY | 2025-01-02 08:42 | XMS_ITS | Encounter Summary ---
Author Organization [facility] Address [address] [place] [address] Care Team Providers Care Human Resource Consultant Name Role Phone Huber Haile MD Primary Care Provider [phone] Encounter Details Date Type Department Care Team (Late st Contact Info) Description 12/09/2001 Outpatient Historical [facility] LAVATORY ATTENDANT - [address] [place] [address] Parish Irwin MD [address] [place] [address] Social History Tobacco Use Types Packs/Day Years Used Date Smoking Tobacco: Never Assessed Comments Unknown Sex and Gender Information Value Date Recorded Sex Assigned at Not on file Legal Sex Female 4:39 AM MAINTENANCE 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
--- OUTSIDE RECORDS SUMMARY | 2025-01-02 08:42 | XMS_ITS | Encounter Summary ---
Author Organization [facility] Address [address] [facility] Attn: [place] [address] Care Team Providers Care Corporate Driver Name Role Phone Huber Haile MD Primary Care Provider [phone] Encounter Details Date Type Department Care Team (Late st Contact Info) Description 08/04/1996 Outpatient Historical Conversion, History Geo Finley Social History Tobacco Use Types Packs/Day Years Used Date Smoking Tobacco: Never Assessed Comments Unknown Sex and Gender Information Value Date Recorded Sex Assigned at Not on file Legal Sex Female 4:39 AM PBX OPERATOR Gender Identity Not on file Sexual Orientation Not on file documented as of this encounter Plan of Treatment Not on file documented as of this encounter Visit Diagnoses Not on filedocumented in this encounter Care Teams Corporate Driver Relationship Specialty Start Date End Date Huber Haile MD [address] [phone] PCP - General 12/07/02 documented as of this encounter
--- OUTSIDE RECORDS SUMMARY | 2025-01-02 08:43 | XMS_ITS | Clinical Summary ---
Author Organization [facility] Address [address] [place] [address] Care Team Providers Care Top Lift Nailer Name Role Phone Kim Quiroga MD Primary Care Provider [phone] Conor Slaughter MD Unavailable Allergies Active Allergy Reactions Criticality Noted Date Comments Atorvastatin Other (See comments) Low Reaction: arms felt weak, Omeprazole Nausea only Low 03/16/2023 Pravastatin Other (See comments) High Reaction: muscle cramps, Medications SUMAtriptan (IMITREX) 50 mg tabletIndicatio ns:Migraine Take 1 tablet (50 mg total) by mouth once as needed for migraine May repeat after 2 hours. 27 tablet 4 10/02/2022 Active ibandronate (BONIVA) 150 mg tablet Take 1 tablet (150 mg total) by mouth every 30 (thirty) days 07/21/2023 Active fenofibrate (TRIGLIDE) 160 mg tablet TAKE 1 TABLET BY MOUTH EVERY DAY 90 tablet 3 03/28/2024 Active ezetimibe (ZETIA) 10 mg tablet TAKE 1 TABLET BY MOUTH EVERY DAY 90 tablet 3 05/20/2024 Active cyclobenzaprine (FLEXERIL) 5 mg tablet Take 1 tablet (5 mg total) by mouth 2 (two) times a day as needed for muscle spasms 30 tablet 3 07/21/[address] (NexIUM) 40 mg capsule TAKE 1 CAPSULE BY MOUTH TWICE DAILY WITH MEALS 200 capsule 1 09/28/2024 Active apixaban (ELIQUIS) 5 mg tabletIndicatio ns:Venous Thrombosis Take 1 tablet (5 mg total) by mouth 2 (two) times a day 60 tablet 4 10/11/2024 Active valsartan-hydro CHLOROthiazide (DIOVAN-HCT) 80-12.5 mg per tablet TAKE 1 TABLET BY MOUTH EVERY DAY 90 tablet 3 10/13/2024 Active imipramine (TOFRANIL) 25 mg tablet TAKE 1 TABLET BY MOUTH EVERY DAY AT NIGHT 100 tablet 1 10/28/2024 Active montelukast (SINGULAIR) 10 mg tablet TAKE 1 TABLET BY MOUTH EVERY DAY AT NIGHT 90 tablet 3 11/08/2024 Active levothyroxine (SYNTHROID) 125 mcg tablet TAKE 1 TABLET BY MOUTH EVERY DAY 90 tablet 4 11/17/2024 Active Active Problems Problem Noted Date Diagnosed Date 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 Continue nonweightbearing. Keep follow-up with orthopedist next , January 17. Keep leg elevated to prevent swelling. Try backing off hydrocodone dosing to every 6 hours for several days and then to every 8 hours. Prescription for Naprosyn 1 b.i.d. with meals sent to patient's pharmacy to help with swelling and pain. Work note printed and given to patient with restrictions as requested. Request for records from [facility] form signed by patient. Abdominal bloating 05/02/2020 Assessment & Plan (05/02/2020 11:43 AM CEMENT PATCHER): Chronic Uncontrolled Differential diagnosis include GERD ( seen on EGD), food intolerance, SIBO, functional, biliary dyskinesia Recommend to limit caffeine and follow GERD diet Weight loss Cont nexium Avoid lactose, let me know if symptoms not controlled options are to order HIDA scan then order Xifaxamin course OR and send to [employer]. Hiatal hernia 05/02/2020 Assessment & Plan (05/02/2020 11:33 AM CEMENT PATCHER): New seen on EGD Treatment as above No 1 Screening for colon cancer 01/26/2020 Overview (01/26/2020): Added automatically from request for surgery [id number] Esophagitis, [place] grade A 01/18/2020 Overview (01/18/2020): Added automatically from request for surgery [id number] Assessment & Plan (05/02/2020 11:42 AM CEMENT PATCHER): New found on EGD 03/19 Same treatment as 1 Acquired hypothyroidism 12/01/2018 Overview (12/01/2018): on meds and continue Preventative health care 12/01/2018 BMI 30.0-30.9,adult 07/23/2017 Assessment & Plan (07/23/2017 8:16 AM CDT): Your BMI indicates overweight or obesity and you must reduce calories, lose weight at 1-2 # per week, restrict carbohydrates, fast foods, sweets, and alcohol intake as are wasted calories. Mediterranean diet and Weight Watchers are starting points while teaming up with a friend to gain reponsibility. Walk as you are able and a goal of 30 minutes 5 days/week will help in your health and weight loss. Losing 5-10% of your obese weight is very beneficial. Depression 05/15/2015 Overview (08/01/2016): Depression Anxiety 05/15/2015 Overview (08/01/2016): Anxiety Arthralgia of hip 04/02/2012 Overview (07/30/2016): Hip pain Essential hypertension 04/02/2012 Overview (07/31/2016): Essential hypertension Resolved Problems Problem Noted Date Diagnosed Date Resolved Date Gastroesophageal reflux disease 04/02/2012 12/01/2018 Overview (07/30/2016): GERD (gastroesophageal reflux disease) Assessment & Plan (01/27/2018 7:55 AM CDT): Increase The omeprazole 80mg Am X 2 weeks and then 40mg Controlled and continue with same medication if needed regularly. Encourage weight control, low salt diet, and medication compliance. To help control your symptoms, anti GERD measures such as do not lie down for 2 hours after eating, avoid fatty meals and large meals, restrict soda and carbonated beverages, citrus and spicy food to be avoided until heartburn improves, necessity to get to ideal Body weight, sleep on left side, elevate head of bed as needed. Continue meds as prescribed but be aware of risk of custodial PPI and acid blocking medications use potentially may cause infection, osteoporosis, kidney disease, and possible dementia. Calcium Citrate /vitamin D may prevent bone issues but not to take if have calcium kidney stone history. Call me if any worsening of symptoms or changes. Add B12 daily if on metformin and custodial use of the acid blockers. If can stop the PPI acid lowering med and use as needed every 2 weeks would lessen side effects potential and if able do so. Encounters Date Type Department Care Team Description 10/11/2024 1:30 PM CDT Office Visit [facility] [address] [place] [phone] Conor Slaughter MD Thrombosis of ovarian vein from Last 3 Months Immunizations Immunization Administration Dates Next Due Influenza, Quadrivalent, Spl it, Preservative Free, Intradermal 02/06/2016 Influenza, Quadrivalent, Spl it, Preservative Free, Intramuscular 01/31/2022,02/03/2021,01/18/2020,01/26 Influenza, Split 04/02/2012 Influenza, Trivalent, IM (MDV) 05/07/2013 Influenza, Trivalent, Preser vative Free, Intramuscular 02/07/2013,02/07/2013 Influenza, Trivalent, Split, Preservative Free, Intradermal 02/07/2014 Influenza, Unspecified 02/25/2023,2020,01/25/2018,02/05 Pfizer SARS-CoV-2 Monovalent Vaccination (12+ Yrs) PURPLE 04/17/2021,08/05/2020,07/12/2020 Pneumococcal Conjugate Pcv20 08/29/2024 Tdap 08/18/2023 Surgical History Surgery Date Site/Laterality Comments SECTION section TONSILLECTOMY Tonsillectomy APPENDECTOMY Appendectomy HERNIA REPAIR Hernia repair THYROIDECTOMY 04/27/2016 - 04/26/2017 Thyroidectomy UPPER GASTROINTESTINAL ENDOSCOPY 07/30/2017 moderate chronic inflammation LUMBAR DISCECTOMY UPPER GASTROINTESTINAL ENDOSCOPY 11/20/2011 ESOPHAGOGASTRODUODENOSCOPY 04/27/2019 - 04/26/2020 ANKLE SURGERY 12/26/2020 - 01/24/2021 Left fracture SECTION 1989 & 1992 Medical History Medical History Date Comments Hx Other Medical back surgery Hypertension Hyperlipidemia GERD (gastroesophageal reflux disease) abdominal/epigastric pain Hypothyroidism PONV (postoperative nausea and vomiting) Chronic constipation off and on not taking anything Broken ankle 12/2020 Anxiety Osteoporosis Family History Medical History Relation Name Comments Atrial fibrillation Brother 1 Bill Shevcik Hearing loss Brother 1 Bill Shevcik [facility] [place] Brother 1 Bill Shevcik Neuromuscular disorder Brother 1 Bill Shevcik kearn s-sayer syndrome Atrial fibrillation Brother 2 Bill Shevcik Hearing loss Brother 2 Bill Shevcik [facility] Brother 2 Bill Shevcik Neuromuscular disorder Brother 2 Bill Shevcik Alcohol abuse Father Mervin Shevcik Cancer Father Mervin Shevcik Hearing loss Father Mervin Shevcik Memory loss Father Mervin Shevcik Cancer Father's Brother 1 Baljeet Shevcik Cancer Father's Brother 2 Baljeet Shevcik Cancer Father's Sister 1 Amanda Mulchay Memory loss Father's Sister 2 Amanda Flip Cancer Father's Sister 3 Amanda Mulchay Memory loss Father's Sister 4 Amanda Flip Hypertension Maternal Grandfather Robert Thebeau Stroke Maternal Grandfather Robert Thebeau Heart attack Maternal Grandmother Triplett Thebeau Heart disease Maternal Grandmother Camila Thebeau Hypertension Maternal Grandmother Triplett Thebeau Heart attack Mother Tiana Shevcik Heart disease Mother Tiana Shevcsanta Hypertension Mother Tiana Shevcik Heart disease Other 1 Family history of heart problems; Colon cancer Other 2 Family history of Cancer, colon; Other Other 3 Family history of atherosclerosis; Breast cancer Other 4 Family history of Cancer, breast; Depression Paternal Grandfather Raúl Giannavcsanta Memory loss Paternal Grandfather Raúl Giannavcsanta Osteoporosis Sister Relation Name Status Comments Brother 1 Bill Shevcik Alive Brother 2 Bill Shevcik Alive Father Mervin Shevcik Alive Father's Brother 1 Baljeet Katzvcsanta Father's Brother 2 Baljeet Katzvcsanta Alive Father's Sister 1 Amanda Mulchay Father's Sister 2 Amanda Flip Father's Sister 3 Amanda Mulchay Alive Father's Sister 4 Amanda Flip Alive Maternal Grandfather Robert Romero Alive Maternal Grandmother Camila Romero Alive Mother Tiana Bergeron Alive Other 1 Other 2 Other 3 Other 4 Paternal Grandfather Raúl Bergeron Alive Paternal Grandmother Sister Alive Social History Tobacco Use Types Packs/Day Years Used Date Smoking Tobacco: Never Smokeless Tobacco: Never Tobacco Cessation:Counseling Given: Not Answered Alcohol Use Standard Drinks/Week Comments Yes 8 (1 standard drink = 0.6 oz pure alcohol) average twice weekly, 4 drinks per session AUDIT-C Answer Date Recorded Q1: How often do you have a drink containing alc ohol? 2-4 times a month 08/18/2023 Q2: How many drinks containi ng alcohol do you have on a typical day when you are drinking? 1 or 2 08/18/2023 Frequency of Binge Drinking Not on file 07/27 PHQ-2 Answer Date Recorded PHQ-2 Total Score (If total score is 3 or more points, staff should administer the PHQ-9) 0 08/29/2024 Exercise Vital Sign Answer Date Recorde d On average, how many days pe r week do you engage in moderate to strenuous exercise (like a brisk walk)? 0 days Minutes of Exercise per Session Not on file 08/18/2023 Comments No Sex and Gender Information Value Date Recorded Sex Assigned at Not on file Legal Sex Female 12:08 PM CEMENT PATCHER Gender Identity Female 08/08/2021 2:21 PM CDT Sexual Orientation Straight 08/08/2021 2: 21 PM CDT Occupation Industry Job Start Date Job End Date Not on file Not on file Not on file Not on file Obstetrics History Last Filed Vital Signs Vital Sign Reading Time Taken Comments Blood Pressure 146/93 10/11/2024 1:38 PM CDT Pulse 87 10/11/2024 1:38 PM CDT Temperature 36 C (96.8 F) 10/11/2024 1:38 PM CDT Respiratory Rate 20 10/11/2024 1:38 PM CDT Oxygen Saturation 100% 10/11/2024 1:38 PM CDT Inhaled Oxygen Concentration - - Weight 89 kg (196 lb 4.8 oz) 10/11/2024 1:38 PM CDT Height 166.4 cm (5' 5.5) 10/11/2024 1:38 PM CDT Body Mass Index 32.17 10/11/2024 1:38 PM CDT Plan of Treatment Health Maintenance Due Date Last Done Comments Cervical Cancer Screening 1960 Osteoporosis Screening-Bone Density Scan 1960 Zoster Vaccine (1 of 2) 2009 Covid-19 Vaccine (2023-2 5 season) 2023 04/17/2021, 08/05/2020, 07/12/2020 Influenza Vaccine (#1) 2024 , 01/31/2022, 02/03/2021, Additional history exists Breast Cancer Screening-Mammogram 01/18/2025 01/19/2024, 01/14/2023, 01/14/2022, Additional history exists Depression Screening 08/29/2025 08/29/2024, 08/18/2023, 08/12/2022, Additional history exists Fall Risk Assessment 08/29/2025 08/29/2024, 03/19/2020, 12/01/2018, Additional history exists Well Visit 65+ 08/29/2025 08/29/2024, 07/27, 08/12/2022, Additional history exists Colon Cancer Screening-Colonoscopy 03/19/2030 03/19/2020, 03/12/2010 DTaP/Tdap/Td Vaccine (2 - Td or Tdap) 08/17/2033 08/18/2023 Colon Cancer Screening-CT Colonography Discontinued 03/19/2020, 03/12/2010 Colon Cancer Screening-DNA Stool Discontinued 03/19/20 20, 03/12/2010 Colon Cancer Screening-FIT Discontinued 03/19/2020, Colon Cancer Screening-Sigmoidoscopy Discontinued 03/19/2020, 03/12/2010 Hepatitis C Screening Completed 08/03/2020 Hepatitis B Screening Completed 08/29/2024 Pneumococcal vaccine 65+ Completed 08/29/2024 Procedures Procedure Name Priority Date/Time Associated Diagnosis Comments SCREENING MAMMOGRAM 2D BILATERAL Schedule Routine, Read Routine (OP Routine) 01/19/2024 2:30 PM CDT HEPATITIS C ANTIBODY Routine 08/03/2020 10:29 AM CDT Encounter for annual physical exam COLONOSCOPY 03/19/2020 11:16 AM CEMENT PATCHER from Last 3 Months or Most Recently Relevant to Health Maintenance Results * Screening Mammogram 2D Bilateral (01/19/2024 2:30 PM CDT) SCRIBED BI-RADS 1 Anatomical Region Laterality Modality Breast Bilateral Mammography Historical Provider MD GILLETTE MAMMO PROCEDURES Geraldine l Result * Hepatitis C antibody (08/03/2020 10:29 AM CDT) Hep C Ab Nonreactive Nonreactive [facility] Comment: Interpretive Data Nonreactive: Antibodies to HCV not detected. Does NOT exclude the possibility of recent exposure to HCV. Equivocal: Equivocal for HCV antibodies. Supplemental molecular testing will be automatically performed to determine infection status in accordance with current CDC screening recommendations. Reactive: Positive for HCV antibodies. This may represent current or past HCV infection. Supplemental molecular testing will be automatically performed to determine current infection status in accordance with current CDC screening recommendations. Interpretive data was last revised on 2019. Blood specimen (specimen) 08/03/2020 10:29 AM CDT 08/03/2020 2:01 PM CDT Kim Quiroga MD LAB MICROBIOLOGY - GENERAL CHRISSIE SIMPSON Final Result [facility] [address] Department [place] [address] * COLONOSCOPY (03/19/2020 11:16 AM CEMENT PATCHER) Anatomical Region Laterality Modality Other Narrative Procedure Note Ulises Magallanes MD - 03/19/2020 11:16 AM CST ENDOSCOPY LAB Patient Name: Anahi Barcenas Procedure Date: 03/19/2020 11:16AM Admit Type: Outpatient Room: [facility] 1 Date of : 1960 Instrument Name: [id number] Gender: Female Note Status: Finalized Procedure: Colonoscopy Indications: Screening for colorectal malignant neoplasm Comorbidities No comorbidities Providers: Ulises Magallanes M.D. Referring MD: Kim Quiroga M.D. Medicines: Propofol per Anesthesia Complications: No immediate complications. Estimated Blood Loss: Estimated blood loss: none. Procedure: Pre-Anesthesia Assessment: - Prior to the procedure, a History and Physical was performed, and patient medications and allergies were reviewed. The patient's tolerance of previousanesthesia was also reviewed. The risks and benefits of theprocedure and the sedation options and risks were discussed withthe patient. All questions were answered, and informedconsent was obtained. Prior Anticoagulants: The patient hastaken no previous anticoagulant or antiplatelet agents. ASA Grade Assessment: II - A patient with mild systemic disease. After reviewing the risks and benefits, the patient was deemed in satisfactory condition to undergo the procedure. - The risks and benefits of the procedure and thesedation options and risks were discussed with the patient. All questions were answered and informed consent wasobtained. The benefits, risks and alternatives of the procedureand sedation were discussed and informed consent wasobtained. All questions were answered. Please refer to the signed informed consent document in the medical record. Thescope was passed under direct vision. The Colonoscope was introduced through the anus and advanced to the the terminal ileum. The colonoscopy was performed without difficulty. The patient tolerated the procedure well.The quality of the bowel preparation was evaluated usingthe BBPS ([place] Bowel Preparation Scale) with scores of: Right Colon = 2 (minor amount of residual staining,small fragments of stool and/or opaque liquid, but mucosaseen well), Transverse Colon = 2 (minor amount of residual staining, small fragments of stool and/or opaqueliquid, but mucosa seen well) and Left Colon = 2 (minor amountof residual staining, small fragments of stool and/oropaque liquid, but mucosa seen well). The total BBPS scoreequals 6. The quality of the bowel preparation was good. The bowel preparation used was Miralax. Bowel prep was administered using a split dose. Findings: The perianal and digital rectal examinations were normal. Non-bleeding internal hemorrhoids were found during retroflexion. The hemorrhoids were Grade II (internal hemorrhoids that prolapse butreduce spontaneously). The colon (entire examined portion) appeared normal. The terminal ileum appeared normal. Impression: - Non-bleeding internal hemorrhoids. - The entire examined colon is normal. - The examined portion of the ileum was normal. - No polyps or lesions seen. Recommendation: - [facility] The signs and symptoms of potential delayedcomplications were discussed with the patient. Return to normal activities tomorrow. Written discharge instructionswere provided to the patient. - Resume previous diet. - Continue present medications. - Repeat colonoscopy in 10 years for screeningpurposes. - Return to primary care physician as previouslyscheduled. Attending Participation: I personally performed the entire procedure. Electronically signed by Ulises Magallanes MD Ulises Magallanes M.D. 03/19/2020 11:57:11 AM Number of Addenda: 0 Note Initiated On: 03/19/2020 11:16 AM Scope In: Scope Out: Ulises Magallanes MD ENDOSCOPY PROCEDURES Final Resul t from Last 3 Months or Most Recently Relevant to Health Maintenance Insurance CHOICE PLUS CHOICE PLUS PLUS Advance Directives For more information, please contact: [phone] * Full Code (Latest Code Status on File) Date Activated Date Inactivated Comments 03/19/2020 9:40 AM 03/20/2020 4:03 PM * Full Code Date Activated Date Inactivated Comments 07/30/2017 9:05 AM 07/30/2017 12:57 PM Care Teams Top Lift Nailer Relationship Specialty Start Date End Date Kim Quiroga MD [address] [address] PCP - General Family Medicine 01/18/20 Conor Slaughter MD [address] [place] [address] Medical Oncologist/Hand Mold Maker Hematology and Oncology 09/12/24
--- OUTSIDE RECORDS SUMMARY | 2025-01-02 08:43 | XMS_ITS | Clinical Summary ---
Author Organization [facility] Address [address] [place] [address] Phone Care Team Providers Care Smelting Engineer Name Role Phone Huber Haile MD Primary Care Provider [phone] Allergies No known active allergies Medications imipramine HCl (TOFRANIL) 25 mg Oral Tab Take 1 Tab by mouth daily at bedtime. Active atorvastatin (LIPITOR) 20 mg tablet Take 20 mg by mouth Daily LATE. Active losartan-hydroch lorothiazide (HYZAAR) 50-12.5 mg tablet 01/07/2015 Active pantoprazole (PROTONIX) 40 mg Tablet, Delayed Release (E.C.) 01/22/2015 Acti ve Active Problems Problem Noted Date Diagnosed Date Well woman exam with routine gynecological exam 11/14/2010 Family History Medical History Relation Name Comments Heart Disease Father Heart Disease Mother Hypertension Mother Other Mother Breast Cancer Other paternal aunt Ovarian Cancer Neg Hx Relation Name Status Comments Father Alive Mother Alive Other paternal aunt Alive Social History Tobacco Use Types Packs/Day Years Used Date Smoking Tobacco: Never Alcohol Use Standard Drinks/Week Comments Yes 0 (1 standard drink = 0.6 oz pur e alcohol) Comments No Sex and Gender Information Value Date Recorded Sex Assigned at Not on file Legal Sex Female 4:39 AM AIRCRAFT LIFE SUPPORT FITTER Gender Identity Not on file Sexual Orientation Not on file Occupation Industry Job Start Date Job End Date Not on file Not on file Not on file Not on file Not on file Not on file Not on file Not on file Last Filed Vital Signs Vital Sign Reading Time Taken Comments Blood Pressure 118/72 04/03/2016 9:31 AM AIRCRAFT LIFE SUPPORT FITTER Pulse - - Temperature - - Respiratory Rate - - Oxygen Saturation - - Inhaled Oxygen Concentration - - Weight 82.1 kg (181 lb) 04/03/2016 9:31 AM AIRCRAFT LIFE SUPPORT FITTER Height 170.2 cm (5' 7) 04/03/2016 9:31 AM AIRCRAFT LIFE SUPPORT FITTER Body Mass Index 28.35 04/03/2016 9:31 AM AIRCRAFT LIFE SUPPORT FITTER Plan of Treatment Health Maintenance Due Date Last Done Comments DTAP/TDAP/TD VACCINES (1 - Tdap) 1978 COLORECTAL SCREENING 2004 Colorectal Cancer Screening 2004 FIT-DNA Q 3 years 2004 FIT/FOBT Q 1 year 2004 Flex Sig/CT Colonography Q 5 years 2004 PNEUMOCOCCAL VACCINE 50+ YEA RS (1 of 1 - PCV) 2009 ZOSTER VACCINE (1 of 2) 2009 BREAST CANCER SCREENING 01/15/2019 01/16/20 18, 01/20/2017, 01/14/2016, Additional history exists OSTEOPOROSIS SCREENING 2024 INFLUENZA VACCINE (#1) 2024 0, 01/26/2019, 02/06/2016, Additional history exists RSV VACCINE (60+ or ) (1 - 1-dose 75+ series) 2034 Procedures Procedure Name Priority Date/Time Associated Diagnosis Comments MAMMO 3D WYATT SCREEN BILATER AL MOBILE Routine 01/15/2018 from Last 3 Months or Most Recently Relevant to Health Maintenance Results * MAMMO SCREENING BILAT MOBILE (01/15/2018) Anatomical Region Laterality Modality Breast Bilateral Mammography us Parish Irwin MD MAMMO ORDERABLES Final Result from Last 3 Months or Most Recently Relevant to Health Maintenance Care Teams Smelting Engineer Relationship Specialty Start Date End Date Huber Haile MD [facility] [address] [phone] PCP - General 12/07/02
== END 2025-01-02 08:28 | disposition home or self-care (01) ==
LOC: ANHFOHIMG 08:31
PROVIDERS: Visit Provider Obstetrics & Gynecology Gynecology
DX: Z78.0 Asymptomatic menopausal state (principal); M85.88 Other specified disorders of bone density and structure, other site; M85.852 Other specified disorders of bone density and structure, left thigh; M85.851 Other specified disorders of bone density and structure, right thigh
CPT/HCPCS: 77080